=== PATIENT | female | born 1940 | race Caucasian/White ===

== ENCOUNTER 2017-05-19 13:00 | Inpatient (IN) | payer OTHER ==
[~2017-05-19] VITALS: Ht 160 cm; Wt 61.0 kg
[2017-05-19 13:08] VITALS: Ht 160 cm; Wt 61.0 kg
[2017-05-19 15:31] LABS: BASOPHIL % 0.3 % (0-2); PLATELET COUNT 298 x10^3mcL (130-400)
[2017-05-19 15:52] LABS: microscopic required? NO; urine erythrocyte NEGATIVE (NEGATIVE)
[2017-05-19] MEDS ORDERED: CLOPIDOGREL75 M1 PO (15:55)
[2017-05-19] MEDS ORDERED: ZIA10 PO (15:56)
[2017-05-19] MEDS ORDERED: METOPROLOL SUCC25 M2 PO (15:57)
[2017-05-19] MEDS ORDERED: TRAZODONE50 M1 PO (15:57)
[2017-05-19 16:03] LABS: AMPHETAMINE QUAL UR NONE DETECTED (NEG <=1000)
[2017-05-19 16:09] LABS: CALCIUM 8.4 mg/dL (8.5-10.1); CARBON DIOXIDE 29.3 mmol/L (21-32); CHLORIDE SERUM 98 mmol/L (98-107); GLUCOSE SERUM 134 mg/dL (74-106); POTASSIUM SERUM 3.3 mmol/L (3.5-5.1); SODIUM SERUM 137 mmol/L (136-145)
[2017-05-19 16:22] LABS: ALBUMIN 3.6 g/dL (3.4-5.0); ALKALINE PHOSPHATASE 73 U/L (46-116); ALT/SGPT 26 U/L (14-59); AMYLASE 61 U/L (25-115); AST/SGOT 26 U/L (15-37); BILIRUBIN TOTAL 0.68 mg/dL (0.20-1.00); CHOLESTEROL 147 mg/dL (<200); HDL CHOLESTEROL 55 mg/dL (40-60); LIPASE 95 IU/L (73-393); MAGNESIUM 2.1 mg/dL (1.8-2.4); T4(THYROXINE) 10.8 ug/dL (4.7-13.3); TOTAL PROTEIN, SERUM 7.3 g/dL (6.4-8.2)
[2017-05-19 16:41] LABS: CHOLESTEROL/HDL RATIO 2.6
[2017-05-19 16:48] LABS: FREE T4 1.47 ng/dL (0.76-1.46); FREE THYROXINE INDEX 3.5 ug/dL (1.4-4.5); T4(THYROXINE) 9.5 ug/dL (4.7-13.3)
[2017-05-19 16:52] LABS: T3 TOTAL 1.23 ng/mL
[2017-05-19] MEDS ORDERED: TOPROL XL25 MG PO (17:31)
[2017-05-19] MEDS ORDERED: HYDROCHLOROTHIA25 MG PO (17:34)
[2017-05-19 18:14] VITALS: BP 140/63
[2017-05-19 21:09] VITALS: BP 124/52
[2017-05-19 22:57] VITALS: BP 135/71
[2017-05-20 05:59] VITALS: BP 140/53
[2017-05-20 06:34] LABS: CALCIUM 7.8 mg/dL (8.5-10.1); CARBON DIOXIDE 26.5 mmol/L (21-32); CHLORIDE SERUM 107 mmol/L (98-107); CREATININE SERUM 0.8 mg/dL (0.6-1.0); GLUCOSE SERUM 100 mg/dL (74-106); PHOSPHOROUS 3.2 mg/dL (2.5-4.9); POTASSIUM SERUM 3.4 mmol/L (3.5-5.1); SODIUM SERUM 143 mmol/L (136-145)
[2017-05-20 06:44] LABS: BASOPHIL % 0.3 % (0-2); PLATELET COUNT 251 x10^3mcL (130-400); RED CELL DISTRIBUTION WIDTH 13.1 % (11.5-14.5)
[2017-05-20 08:52] VITALS: BP 131/53
[2017-05-20 13:50] VITALS: BP 104/85
[2017-05-20 17:50] VITALS: BP 158/51
[2017-05-20 21:15] VITALS: BP 149/60
[2017-05-21 05:50] VITALS: BP 160/75
[2017-05-21 06:11] LABS: BASOPHIL % 0.3 % (0-2); PLATELET COUNT 273 x10^3mcL (130-400); RED CELL DISTRIBUTION WIDTH 13.2 % (11.5-14.5)
[2017-05-21 06:28] LABS: CALCIUM 8.1 mg/dL (8.5-10.1); CARBON DIOXIDE 30.1 mmol/L (21-32); CHLORIDE SERUM 101 mmol/L (98-107); CREATININE SERUM 0.7 mg/dL (0.6-1.0); GLUCOSE SERUM 117 mg/dL (74-106); MAGNESIUM 1.8 mg/dL (1.8-2.4); PHOSPHOROUS 2.8 mg/dL (2.5-4.9); POTASSIUM SERUM 3.2 mmol/L (3.5-5.1); SODIUM SERUM 139 mmol/L (136-145)
[2017-05-21 09:02] VITALS: BP 145/67
[2017-05-21 12:42] VITALS: BP 135/60
[2017-05-21 17:48] VITALS: BP 142/62
[2017-05-21 20:54] VITALS: BP 120/66
[2017-05-22 04:55] VITALS: BP 152/59
[2017-05-22 07:11] LABS: CALCIUM 8.3 mg/dL (8.5-10.1); CARBON DIOXIDE 26.2 mmol/L (21-32); CHLORIDE SERUM 102 mmol/L (98-107); CREATININE SERUM 0.7 mg/dL (0.6-1.0); GLUCOSE SERUM 125 mg/dL (74-106); MAGNESIUM 1.9 mg/dL (1.8-2.4); PHOSPHOROUS 3.2 mg/dL (2.5-4.9); POTASSIUM SERUM 3.2 mmol/L (3.5-5.1); SODIUM SERUM 136 mmol/L (136-145)
[2017-05-22 07:16] LABS: BASOPHIL % 0.3 % (0-2); PLATELET COUNT 280 x10^3mcL (130-400); RED CELL DISTRIBUTION WIDTH 13.1 % (11.5-14.5)
[2017-05-22 09:35] VITALS: BP 145/52
[2017-05-22 15:06] VITALS: BP 145/52
[2017-05-22] MEDS ORDERED: LEVAQUIN750 MG PO (16:51)
[2017-05-22] MEDS ORDERED: BD LACTINEX1.4 MG PO (16:51)
[2017-05-22] MEDS ORDERED: POTASSIUM CHLO20 ME1 PO (16:53)
[2017-05-22] MEDS ORDERED: CLEOCIN HCL300 MG PO (16:53)
[2017-05-22 17:32] VITALS: BP 145/52
[2017-05-22 17:33] VITALS: BP 145/52
== END 2017-05-22 18:05 | disposition home health service (06) | DRG 871 ==
LOC: ED 13:00 → DU 16:11 → MU 05-21 06:38
PROVIDERS: Emergency Medicine; Family Medicine
DX: A41.9 Sepsis, unspecified organism (principal); J69.0 Pneumonitis due to inhalation of food and vomit; G93.41 Metabolic encephalopathy; N17.0 Acute kidney failure with tubular necrosis; I69.354 Hemiplegia and hemiparesis following cerebral infarction affecting left non-dominant side; I42.9 Cardiomyopathy, unspecified; R65.20 Severe sepsis without septic shock; I11.9 Hypertensive heart disease without heart failure; E86.0 Dehydration; E87.6 Hypokalemia; F03.90 Unspecified dementia, unspecified severity, without behavioral disturbance, psychotic disturbance, mood disturbance, and anxiety; R73.03 Prediabetes; Z68.25 Body mass index [BMI] 25.0-25.9, adult
CPT/HCPCS: 36600; 83880; 84439; 97110-GP; 97116-GP; 97530-GP; G0480; J1956; J3490; J7030; J7620; Q0092